=== PATIENT | female | born 1995 | race African-American/Black ===

== ENCOUNTER → 2016-09-26 | Outpatient (REF) | payer OTHER ==
[~2016-09-26] MED LIST: ACET50TA PO; DOCU10ELUD PO; IBUP80TA PO; MOM30SS PO; MOTR200T44 PO; TYLE325T5 PO
== END ==
LOC: M LAB REF 16:17
PROVIDERS: ATTEND Physician Assistant Medical
DX: J11.1 Influenza due to unidentified influenza virus with other respiratory manifestations (principal)

== ENCOUNTER → 2016-10-19 | Outpatient (REF) | payer OTHER | LOC: M LAB REF 17:35 | PROVIDERS: ATTEND Physician Assistant | DX: R50.9 Fever, unspecified (principal) ==

== ENCOUNTER 2017-08-12 18:28 | Emergency (ER) | payer OTHER ==
[~2017-08-12] VITALS: Ht 175.3 cm; Wt 72.7 kg
[2017-08-12] MEDS ORDERED: TRIA1CR TOP (20:55)
[2017-08-12] MEDS ORDERED: PRED10TA2 PO (20:55)
[2017-08-12 20:58] VITALS: BP 127/64
[2017-08-12] MEDS ORDERED: predniSONE 20 MG TAB PO ONE (21:00)
[2017-08-12] MEDS ORDERED: LORATADINE 10 MG TAB PO ONE (21:00)
[2017-08-12] MEDS ORDERED: TRIAMCINOLONE ACET 0.1% CREAM 80 GM TOP ONE (21:30)
== END 2017-08-12 21:39 | disposition home or self-care (01) ==
LOC: M ED 18:28
DX: L30.9 Dermatitis, unspecified (principal)

== ENCOUNTER → 2017-09-03 | Outpatient (REF) | payer OTHER | LOC: M LAB REF 12:31 | DX: J02.9 Acute pharyngitis, unspecified (principal) ==

== ENCOUNTER 2018-02-14 11:25 | Emergency (ER) | payer OTHER ==
[2018-02-14 12:40] LABS: KETONE, URINE AUTO RFX TRACE mg/dL (NEGATIVE); LEUKOCYTE ESTERASE UR AUTO RFX NEGATIVE (NEGATIVE); MUCUS, URINE RFX SMALL (NEGATIVE); NITRITE, URINE AUTO RFX NEGATIVE (NEGATIVE); RBC, URINE AUTO RFX 3 /HPF (0-3); SPECIFIC GRAVITY UR AUTO RFX 1.027 (1.002-1.035); SQUAM EPITHELIAL CELL UR AURFX 1 /HPF (0-6); WBC, URINE AUTO RFX 1 /HPF (0-3)
[2018-02-14 12:43] LABS: BASO % 0.5 % (0.0-1.0); EOS % 0.3 % (0.0-3.0); HEMATOCRIT 39.4 % (36.0-47.0); HEMOGLOBIN 13.5 g/dl (12.0-15.5); IMMATURE GRANULOCYTE % 0.5 % (0-3.0); LYMPH # 1.8 10^3/uL (1.5-6.5); LYMPH % 20.4 % (24.0-44.0); MEAN CORPUSCULAR HEMOGLOBIN 30.3 pg (27.0-33.0); MEAN CORPUSCULAR HGB CONC 34.3 g/dl (32.0-36.5); MEAN CORPUSCULAR VOLUME 88.3 fl (80.0-96.0); MONO # 0.6 10^3/uL (0.0-0.8); MONO % 6.7 % (0.0-5.0); NEUTROPHILS # 6.3 10^3/uL (1.8-7.7); NEUTROPHILS % 71.6 % (36.0-66.0); PLATELET COUNT, AUTOMATED 306 10^3/uL (150-450); RED BLOOD COUNT 4.46 10^6/uL (4.00-5.40); RED CELL DISTRIBUTION WIDTH 12.6 % (11.5-14.5); WHITE BLOOD COUNT 8.7 10^3/uL (4.0-10.0)
[2018-02-14 13:17] LABS: HCG, SERUM QUANTITATIVE 14595 MIU/ML
== END 2018-02-14 13:46 | disposition home or self-care (01) ==
LOC: M ED 11:25
DX: O99.89 Other specified diseases and conditions complicating pregnancy, childbirth and the puerperium (principal); R10.2 Pelvic and perineal pain; Z32.01 Encounter for pregnancy test, result positive; O99.331 Smoking (tobacco) complicating pregnancy, first trimester; Z3A.01 Less than 8 weeks gestation of pregnancy
CPT/HCPCS: 76801

== ENCOUNTER → 2018-04-03 | Outpatient (CLI) | payer OTHER ==
[2018-04-04 10:20] LABS: BASO % 0.3 % (0.0-1.0); EOS # 0.1 10^3/uL (0.0-0.50); EOS % 1.1 % (0.0-3.0); HEMOGLOBIN 12.3 g/dl (12.0-15.5); IMMATURE GRANULOCYTE % 0.2 % (0-3.0); LYMPH # 2.1 10^3/uL (1.5-6.5); LYMPH % 22.7 % (24.0-44.0); MEAN CORPUSCULAR HEMOGLOBIN 30.6 pg (27.0-33.0); MEAN CORPUSCULAR HGB CONC 34.2 g/dl (32.0-36.5); MEAN CORPUSCULAR VOLUME 89.6 fl (80.0-96.0); MONO # 0.5 10^3/uL (0.0-0.8); MONO % 5.3 % (0.0-5.0); NEUTROPHILS # 6.5 10^3/uL (1.8-7.7); NEUTROPHILS % 70.4 % (36.0-66.0); PLATELET COUNT, AUTOMATED 228 10^3/uL (150-450); RED BLOOD COUNT 4.02 10^6/uL (4.00-5.40); RED CELL DISTRIBUTION WIDTH 13.1 % (11.5-14.5); WHITE BLOOD COUNT 9.3 10^3/uL (4.0-10.0)
[2018-04-04 13:33] LABS: CHLAMYDIA DNA AMPLIFICATION NEGATIVE (NEGATIVE); GC DNA AMPLIFICATION NEGATIVE (NEGATIVE)
[2018-04-05 09:39] LABS: RUBELLA IgG QUALITATIVE IMMUNE (IMMUNE)
[2018-04-05 09:52] LABS: HBsAg Prenatal NEGATIVE (NEGATIVE)
[2018-04-05 10:09] LABS: HIV 1&2 SCREEN CENTAUR NEGATIVE (NEGATIVE)
[2018-04-05 10:09] LABS: HEPATITIS C VIRUS ABY INDEX 0.1 INDEX (<0.8)
== END ==
LOC: M SMT 14:08
DX: Z34.81 Encounter for supervision of other normal pregnancy, first trimester (principal); Z36.89 Encounter for other specified antenatal screening; Z3A.09 9 weeks gestation of pregnancy
CPT/HCPCS: 86762

== ENCOUNTER → 2018-05-02 | Outpatient (CLI) | payer OTHER, SELFPAY | LOC: M SMT 14:59 | DX: Z34.82 Encounter for supervision of other normal pregnancy, second trimester (principal); Z36.89 Encounter for other specified antenatal screening | CPT/HCPCS: 36415 ==

== ENCOUNTER 2018-05-13 17:00 | Emergency (ER) | payer SELFPAY, OTHER ==
[2018-05-13 19:11] LABS: INFLUENZA A AMPLIFICATION NEGATIVE (NEGATIVE); INFLUENZA B AMPLIFICATION NEGATIVE (NEGATIVE)
== END 2018-05-13 20:09 | disposition home or self-care (01) ==
LOC: M ED 17:00
DX: O99.511 Diseases of the respiratory system complicating pregnancy, first trimester (principal); Z87.891 Personal history of nicotine dependence
CPT/HCPCS: 87502

== ENCOUNTER → 2018-05-15 | Outpatient (CLI) | payer SELFPAY, OTHER | LOC: M RAD 10:35 | DX: Z36.89 Encounter for other specified antenatal screening (principal); Z3A.20 20 weeks gestation of pregnancy | CPT/HCPCS: 76811 ==

== ENCOUNTER → 2018-08-27 | Outpatient (CLI) | payer OTHER ==
[~2018-08-27] MED LIST changes: +AMOX500C PO; +PRED10TA2 PO; +TRIA1CR TOP
[2018-08-27 17:54] LABS: HEMATOCRIT 32.3 % (36.0-47.0); HEMOGLOBIN 10.5 g/dl (12.0-15.5); MEAN CORPUSCULAR HEMOGLOBIN 27.2 pg (27.0-33.0); MEAN CORPUSCULAR HGB CONC 32.5 g/dl (32.0-36.5); MEAN CORPUSCULAR VOLUME 83.7 fl (80.0-96.0); PLATELET COUNT, AUTOMATED 370 10^3/uL (150-450); RED BLOOD COUNT 3.86 10^6/uL (4.00-5.40); WHITE BLOOD COUNT 13.5 10^3/uL (4.0-10.0)
== END ==
LOC: M SMT 14:02
PROVIDERS: ATTEND Advanced Practice Midwife
DX: Z36.89 Encounter for other specified antenatal screening (principal); Z3A.00 Weeks of gestation of pregnancy not specified

== ENCOUNTER → 2018-09-10 | Outpatient (REF) | payer OTHER, SELFPAY | LOC: M LAB REF 17:15 | PROVIDERS: ATTEND Advanced Practice Midwife | DX: Z34.83 Encounter for supervision of other normal pregnancy, third trimester (principal); Z3A.00 Weeks of gestation of pregnancy not specified ==

== ENCOUNTER 2018-09-28 18:06 | Inpatient (IN) | payer OTHER ==
[~2018-09-28] VITALS: Ht 175.3 cm; Wt 91.0 kg
[2018-09-28] VITALS (7 sets, daily range): BP systolic 123–140; BP diastolic 58–81
[2018-09-28] MEDS ORDERED: TUMS500C PO (19:02)
[2018-09-28 19:05] LABS: HEMATOCRIT 33.7 % (36.0-47.0); HEMOGLOBIN 11.1 g/dl (12.0-15.5); MEAN CORPUSCULAR HEMOGLOBIN 26.1 pg (27.0-33.0); MEAN CORPUSCULAR HGB CONC 32.9 g/dl (32.0-36.5); MEAN CORPUSCULAR VOLUME 79.1 fl (80.0-96.0); PLATELET COUNT, AUTOMATED 337 10^3/uL (150-450); RED BLOOD COUNT 4.26 10^6/uL (4.00-5.40); WHITE BLOOD COUNT 12.3 10^3/uL (4.0-10.0)
[2018-09-28] MEDS ORDERED: LACTATED RINGER'S 1000 ML IV ONE (19:15)
[2018-09-28] MEDS ORDERED: OXYTOCIN 30 UNITS IN 0.9% NaCl 500ML IV BAG (J2590) As Ordered ONE (21:50)
[2018-09-28] MEDS ORDERED: OXYTOCIN DRIP 30 UNITS in APPROPRIATE DILUENT 1 EA IV SCH (23:48)
[2018-09-29] MEDS ORDERED: METHYLERGONOVINE MALEATE 0.2 MG TAB PO PRN
[2018-09-29] MEDS ORDERED: DOCUSATE SODIUM 100 MG CAP PO PRN
[2018-09-29] MEDS ORDERED: MOM 30ML SUSPENSION UDC PO PRN
[2018-09-29] MEDS ORDERED: MEASLES,MUMPS,RUBELLA VACCINE INJ (MMR-II) (90707) SC SCH
[2018-09-29] MEDS ORDERED: RHOGAM 300 MCG (1500 IU) INJ (J2790) IM SCH
[2018-09-29] MEDS ORDERED: IBUPROFEN 800 MG TAB PO PRN
[2018-09-29] MEDS ORDERED: DIBUCAINE 1% OINTMENT 30GM TOP PRN
[2018-09-29] MEDS: ACETAMINOPHEN 500 MG TAB PO PRN ×3 (00:02→20:23)
[2018-09-29 00:08] VITALS: BP 142/65
[2018-09-29 00:23] VITALS: BP 128/59
[2018-09-29 02:23] VITALS: BP 105/58
[2018-09-29 05:52] VITALS: BP 113/68
[2018-09-29] MEDS: PRENATAL VITAMINS CHEWABLE TABLET PO SCH (09:57)
--- NOTE | 2018-09-29 10:14 | NUR ---
L&D Note: S: Doing well w/o complaints. + voids, + ambulation and pain well controlled. O: vss, AF gen: well appearing abd: soft, nttp, FF@U-2 ext: neg calf tenderness A/P: PPD#1 s/p - recovering in stable condition -continue routine care -d/c plans for tomorrow Sammie Paul MD
[2018-09-29 18:24] VITALS: BP 119/76
--- NOTE | 2018-09-29 20:31 | HPE ---
DATE OF ADMISSION: 09/28/2018 REASON FOR ADMISSION: Labor. HISTORY OF PRESENT ILLNESS: This patient is a 23-year-old 3, para 2 who presents at 38 weeks 3 days estimated gestational age by her last menstrual period and confirmed by first trimester ultrasound with complaints of contractions. She reports increased contractions throughout the evening with an increase in intensity. She denies any vaginal bleeding or leakage of fluid. Her course has been unremarkable. She initiated care in the first trimester and has been appropriate throughout. PAST MEDICAL HISTORY: None. PAST SURGICAL HISTORY: She has had a cholecystectomy. PAST OBSTETRICAL HISTORY: She is 3, para 2, she has had two term vaginal deliveries. She has proven to 7 pounds 12 ounces. MEDICATIONS: - vitamins. ALLERGIES: She has no known drug allergies. SOCIAL HISTORY: She denies any alcohol, tobacco, or drug use during the . PHYSICAL EXAMINATION: VITAL SIGNS: Stable. She is afebrile. GENERAL APPEARANCE: Well appearing. No acute distress. She has a category 1 heart rate tracing with contractions on tocometer. LUNGS: Clear to auscultation bilaterally. CARDIOVASCULAR: Heart has regular rate and rhythm. ABDOMEN: Gravid, nontender. Estimated weight is 3000 grams. Cervical exam: She is 4 cm dilated, 75% effaced, -2 station. LABORATORIES: laboratories: Blood type is A positive. Antibody screen is negative. Rubella is immune. RPR is nonreactive. Hepatitis surface antigen is negative. HIV is negative. Hepatitis C is nonreactive. Chlamydia and gonorrhea screens are negative. She had a normal 1 hour Glucola. She is Group B streptococcus (GBS) negative. ASSESSMENT: This is a 23-year-old 3, para 2 at 38 weeks and 3 days estimated gestational age by her last menstrual period and confirmed by her first trimester ultrasound in active labor. Reassuring status. PLAN: Admit to labor and delivery. CBC, RPR, type and screen. The patient is a good candidate for epidural. Anticipate spontaneous vaginal delivery.
[2018-09-30] MEDS: ACETAMINOPHEN 500 MG TAB PO PRN (05:11)
[2018-09-30 06:00] VITALS: BP 116/55
--- NOTE | 2018-09-30 06:40 | DN ---
DATE OF DELIVERY: 09/28/2018 TIME OF : 2312 GENDER: Female. APGARS: 9 and 9. WEIGHT: 3460 grams or 7 pounds 10 ounces. ESTIMATED BLOOD LOSS: 300 mL. ANESTHESIA: None. LACERATIONS: None. COUNTS: 5 laparotomy sponges accounted for prior to and after delivery. DELIVERY NOTE: On 09/28/2018, at 2312, this patient, a 23-year-old, 3, now para 3, had a spontaneous vaginal delivery of a live born female infant, Apgars 9 and 9 and weight was 3460 grams or 7 pounds 10 ounces. Head was delivered occiput anterior (OA) over an intact perineum followed by delivery of the shoulders and corpus. Infant was handed to mom with a good cry. Cord was clamped times two and was cut by the father of the baby under my direction. The placenta was then drained and delivered grossly intact. A premixed bag of 500 mL of normal saline with 30 units of Pitocin was bolused along with uterine massage until the uterus was firm. On inspection, the cervix, vagina and perineum was grossly intact and hemostatic. Mom and baby in recovery in stable condition. The couple has decided to name their daughter Deneen.
[2018-09-30] MEDS: PRENATAL VITAMINS CHEWABLE TABLET PO SCH (08:48)
[2018-09-30] MEDS ORDERED: IBUP80TA PO (10:09)
[2018-09-30] MEDS ORDERED: PRENTAB9 PO (10:09)
[2018-09-30] MEDS ORDERED: MAPA500T2 PO (10:09)
[2018-09-30] MEDS ORDERED: MOM30SS PO (10:09)
[2018-09-30] MEDS ORDERED: COLA100C5 PO (10:09)
== END 2018-09-30 14:25 | disposition home or self-care (01) | DRG 560 ==
LOC: M LDO 18:06 → M LDI 18:39 → M OBS 09-29 02:13
PROVIDERS: ADMIT Obstetrics & Gynecology; ATTEND Obstetrics & Gynecology
PROC: 10E0XZZ Delivery of Products of Conception, External Approach (ICD-10-PCS; principal; 2018-09-28)
DX: O80 Encounter for full-term uncomplicated delivery (principal); Z37.0 Single live birth; Z3A.39 39 weeks gestation of pregnancy